=== PATIENT | female | born 1955 | race Caucasian/White ===

== ENCOUNTER 2023-08-02 02:09 | Observation (INO) | payer OTHER ==
[2023-08-02] MEDS ORDERED: ONDANSETRON 4 MG/2 ML VIAL ONE ×3 (03:03→06:28)
[2023-08-02] MEDS ORDERED: DICYCLOMINE HCL 20 MG/2 ML AMP IM ONE (03:03)
[2023-08-02 03:04] LABS: Absolute Lymphocytes (CBC) 1.5 K/uL (0.7-4.9); Absolute Monocytes 0.5 K/uL (0.1-1.3); Absolute Neutrophil 7.8 K/uL (1.8-8.0); Basophils % 0.4 % (0-1.3); Eosinophils % 0.4 % (0-4.4); Hematocrit 36.3 % (36.0-45.0); Hemoglobin 11.9 g/dL (12.0-15.0); Lymphocytes % 15.3 % (15.3-44.8); MCH 29.8 pg (27.0-35.0); MCHC 32.8 g/dL (32.0-36.0); MCV 90.7 fL (80-100); MPV 7.1 fL (7.6-11.3); Monocytes % 4.7 % (3.3-12.3); Neutrophils % 79.2 % (41.7-73.7); Platelets 302 thou/uL (152-406); Red Cell Distribution Width 14.3 % (12.1-15.2)
[2023-08-02] MEDS ORDERED: NA CHLORIDE 0.9% 1,000 ML ONE (03:04)
[2023-08-02] MEDS ORDERED: MORPHINE 4 MG/ML SYR ONE ×3 (03:04→06:29)
[2023-08-02 03:16] LABS: Albumin 3.7 g/dL (3.4-5.0); Albumin/Globulin Ratio 1.1 (1.1-1.8); Anion Gap 11.2 mEq/L (5.0-15.0); Bilirubin Total 0.7 mg/dL (0.2-1.0); Globulin 3.5 g/dL (2.3-3.5); Potassium 3.2 mEq/L (3.5-5.1); Protein, Total 7.2 g/dL (6.4-8.2)
--- NOTE | 2023-08-02 06:31 | EDPHYS ---
Physician Documentation [facility] Name: Meghana Martinez Age: 68 yrs Sex: Female : 1955 Arrival Date: 08/02/2023 Time: 02:09 Bed 16 Private MD: ED Physician Donis Lamas HPI: 08/01 03:21 This 68 yrs old Female presents to ER via EMS with complaints of abdominal pain. rt 03:21 Patient presents to the ED with nausea, vomiting, diarrhea, generalized abdominal pain rt starting several hours ago. Patient states that this occurred after eating seafood as well as coleslaw. Patient denies other acute complaints at this time. Denies hematemesis, hematochezia. Symptoms are moderate in severity, no other aggravating relieving factors.. Historical: - Allergies: 02:20 NSAIDS; jw7 - PMHx: 02:20 Gout; Hypertensive disorder; Arthritis; jw7 - PSHx: 02:20 Cataract (Mitch Eyes); jw7 - Immunization history:: Adult Immunizations up to date, Client reports receiving the 2nd dose of the Covid vaccine, Pneumococcal vaccine is up to date, Flu vaccine is up to date. - Infectious Disease History:: Denies. - Social history:: Smoking status: Patient denies any tobacco usage or history of. Patient uses alcohol, only on a social basis. street drugs, marijuana. - Family history:: not pertinent. ROS: 03:21 Constitutional: Negative for fever, chills, and weight loss, Cardiovascular: Negative rt for chest pain, palpitations, and edema, Respiratory: Negative for shortness of breath, cough, wheezing, and pleuritic chest pain, MS/Extremity: Negative for injury and deformity, Skin: Negative for injury, rash, and discoloration, Neuro: Negative for headache, weakness, numbness, tingling, and seizure, Psych: Negative for depression, anxiety, suicide ideation, homicidal ideation, and hallucinations, 03:21 Abdomen/GI: Positive for abdominal pain, nausea, vomiting, and diarrhea, Exam: 03:21 Constitutional: This is a well developed, well nourished patient who is awake, alert, rt and in no acute distress. Head/Face: Normocephalic, atraumatic. Chest/axilla: Normal chest wall appearance and motion. Nontender with no deformity. No lesions are appreciated. Cardiovascular: Regular rate and rhythm with a normal S1 and S2. No gallops, murmurs, or rubs. Normal PMI, no JVD. No pulse deficits. Respiratory: Lungs have equal breath sounds bilaterally, clear to auscultation and percussion. No rales, rhonchi or wheezes noted. No increased work of breathing, no retractions or nasal flaring. Skin: Warm, dry with normal turgor. Normal color with no rashes, no lesions, and no evidence of cellulitis. MS/ Extremity: Pulses equal, no cyanosis. Neurovascular intact. Full, normal range of motion. Neuro: Awake and alert, GCS 15, oriented to person, place, time, and situation. Cranial nerves II-XII grossly intact. Motor strength 5/5 in all extremities. Sensory grossly intact. Cerebellar exam normal. Normal gait. 03:21 Abdomen/GI: Mild tenderness diffusely without rebound, guarding, distention, Vital Signs: 02:20 BP 172 / 79; Pulse 58; Resp 29 S; Temp 98.8(O); Pulse Ox 98% on R/A; Weight 96.62 kg; jw7 Height 5 ft. 0 in. ; Pain 8/10; 02:21 BP 172 / 79; Pulse 57; Resp 29; Temp 96.3; Pulse Ox 100% ; Weight 97.98 kg; Height 5 ty ft. 0 in. ; Pain 0/10; 03:30 BP 140 / 78; Pulse 54; Resp 23 S; Pulse Ox 97% on R/A; jw7 04:30 BP 139 / 70; Pulse 67; Resp 21 S; Pulse Ox 96% on R/A; jw7 05:30 BP 115 / 96; Pulse 75; Resp 24 S; Pulse Ox 98% on R/A; jw7 06:30 BP 113 / 82; Pulse 68; Resp 23 S; Pulse Ox 97% on R/A; jw7 07:17 BP 151 / 71; Pulse 51; Resp 15 S; Pulse Ox 97% on R/A; kc6 08:10 BP 132 / 58; Pulse 60; Resp 18 S; Pulse Ox 98% on 2 lpm NC; kc6 02:21 Body Mass Index 42.18 (97.98 kg, 152.4 cm) ty 02:20 Pain Scale: Adult jw7 02:21 Pain Scale: Adult ty MDM: 02:43 Patient medically screened. rt 06:31 Differential Diagnosis Gastroenteritis, nausea, vomiting, diarrhea. Data reviewed: rt vital signs, nurses notes, lab test result(s), EKG. Consideration of Admission/Observation Patient was admitted/placed on observation. Management of patient was discussed with the following: Hospitalist: Agrees to admit. Independent interpretation of the following test(s) in the Emergency Department CT Scan: My interpretation is no bowel obstruction seen on my interpretation of ct images. Care significantly affected by the following chronic conditions: Hypertension. Counseling: I had a detailed discussion with the patient and/or guardian regarding the historical points, exam findings, and any diagnostic results supporting the discharge/admit diagnosis, lab results, radiology results, the need for further work-up and treatment in the hospital. Response to treatment: the patient's symptoms have mildly improved after treatment. 08/01 02:37 Order name: CBC with Diff; Complete Time: 03:16 jw7 08/01 02:37 Order name: CMP; Complete Time: 03:16 jw7 08/01 02:37 Order name: Lipase; Complete Time: 03:16 jw7 08/01 02:57 Order name: CT Abd/Pelvis - IV Contrast Only rt 08/01 05:21 Order name: US Abdomen Limited rt 08/01 02:37 Order name: IV Saline Lock; Complete Time: 02:37 jw7 08/01 02:37 Order name: Labs collected and sent; Complete Time: 02:40 jw7 Administered Medications: 03:17 Drug: NS 0.9% IV 1000 ml IV at 1 bolus Per protocol; 1000 mL bolus Route: IV; Rate: 1 jw7 bolus; Site: left antecubital; 05:17 Follow up: Response: No adverse reaction; IV Status: Completed infusion; IV Intake: jw7 1000ml 03:17 Drug: Dicyclomine IM 20 mg IM once Route: IM; Site: left ventrogluteal; jw7 05:17 Follow up: Response: No adverse reaction; Marked relief of symptoms jw7 03:17 Drug: Ondansetron IVP 4 mg IVP once; over 2 minutes Route: IVP; Site: left antecubital; jw7 05:17 Follow up: Response: No adverse reaction; Marked relief of symptoms jw7 03:17 Drug: morphine IVP or IV 4 mg IVP once over 4 mins Route: IVP; Infused Over: 4 mins; jw7 Site: left antecubital; 05:17 Follow up: Response: No adverse reaction; Marked relief of symptoms; Pain is decreased jw7 06:43 Drug: morphine IVP or IV 4 mg IVP once over 4 mins Route: IVP; Infused Over: 4 mins; jw7 Site: left antecubital; 07:17 Follow up: Response: No adverse reaction; Pain is decreased; RASS: Alert and Calm (0) kc6 06:43 Drug: Ondansetron IVP 4 mg IVP once; over 2 minutes Route: IVP; Site: left antecubital; jw7 07:17 Follow up: Response: No adverse reaction; Nausea is decreased kc6 Disposition Summary: 08/02/23 06:31 Hospitalization Ordered Notes: Hospitalization Status: Observation rt Provider: Donovan King rt Location: Telemetry/MedSurg (observation) rt Condition: Stable rt Problem: new rt Symptoms: are unchanged rt Bed/Room Type: Standard rt Room Assignment: 402(08/02/23 07:26) bd Diagnosis - Intractable nausea and vomiting rt Forms: - Medication Reconciliation Form rt - SBAR form rt - Leadership Thank You Letter rt Signatures: Dispatcher [employer] Solange Blount Jodi, RN RN jw7 Donis Lamas MD MD rt Radha Perdomo RN kc6 Corrections: (The following items were deleted from the chart) 07:26 06:31 rt bd
--- NOTE | 2023-08-02 06:31 | ER ---
Nurse's Notes [facility] Name: Meghana Martinez Age: 68 yrs Sex: Female : 1955 Arrival Date: 08/02/2023 Time: 02:09 Bed 16 Private MD: Diagnosis: Intractable nausea and vomiting Presentation: 08/01 02:20 Chief complaint: Patient states: Nausea, vomiting and diarrhea that started about 2 jw7 hours ago after eating seafood. 02:20 Coronavirus screen: At this time, the client does not indicate any symptoms associated jw7 with coronavirus-19. Ebola Screen: No symptoms or risks identified at this time. Initial Sepsis Screen: Does the patient meet any 2 criteria? No. Patient's initial sepsis screen is negative. Does the patient have a suspected source of infection? No. Patient's initial sepsis screen is negative. Risk Assessment: Do you want to hurt yourself or someone else? Patient reports no desire to harm self or others. Onset of symptoms was August 02, 2023. 02:20 Method Of Arrival: EMS: [facility] jw7 02:20 Acuity: IVONNE 3 jw7 Triage Assessment: 02:20 General: Appears in no apparent distress. uncomfortable, Behavior is calm, cooperative, jw7 appropriate for age. Pain: Complains of pain in abdomen Pain does not radiate. Pain currently is 8 out of 10 on a pain scale. Quality of pain is described as crampy, Pain began suddenly, Is continuous. EENT: No deficits noted. No signs and/or symptoms were reported regarding the EENT system. Neuro: Level of Consciousness is awake, alert, obeys commands, Oriented to person, place, time, situation, Appropriate for age. Cardiovascular: Capillary refill < 3 seconds Patient's skin is warm and dry. Respiratory: Airway is patent Trachea midline Respiratory effort is even, unlabored, Respiratory pattern is regular, symmetrical. GI: Abdomen is round non-distended, obese, Bowel sounds present X 4 quads. Abd is soft Abdomen is tender to palpation Reports lower abdominal pain, upper abdominal pain, diarrhea, nausea, vomiting. : No deficits noted. No signs and/or symptoms were reported regarding the genitourinary system. Derm: Skin is intact, is healthy with good turgor, Skin is dry, Skin is normal, Skin temperature is warm. Musculoskeletal: Circulation, motion, and sensation intact. Range of motion: intact in all extremities. Historical: - Allergies: 02:20 NSAIDS; jw7 - PMHx: 02:20 Gout; Hypertensive disorder; Arthritis; jw7 - PSHx: 02:20 Cataract (Mitch Eyes); jw7 - Immunization history:: Adult Immunizations up to date, Client reports receiving the 2nd dose of the Covid vaccine, Pneumococcal vaccine is up to date, Flu vaccine is up to date. - Infectious Disease History:: Denies. - Social history:: Smoking status: Patient denies any tobacco usage or history of. Patient uses alcohol, only on a social basis. street drugs, marijuana. - Family history:: not pertinent. Screenin:20 [facility] ED Fall Risk Assessment (Adult) History of falling in the last 3 months, jw7 including since admission No falls in past 3 months (0 pts) Confusion or Disorientation No (0 pts) Intoxicated or Sedated No (0 pts) Impaired Gait No (0 pts) Mobility Assist Device Used No (0 pt) Altered Elimination No (0 pt) Score/Fall Risk Level 0 - 2 = Low Risk Oriented to surroundings, Maintained a safe environment, Educated pt \\T\\ family on fall prevention, incl call for assistance when getting out of bed. Abuse screen: Denies threats or abuse. Denies injuries from another. Nutritional screening: No deficits noted. Tuberculosis screening: No symptoms or risk factors identified. Assessment: 02:20 General: See Triage Assessment. jw7 03:30 Reassessment: Patient appears in no apparent distress at this time. Patient and/or 7 family updated on plan of care and expected duration. Pain level reassessed. Patient is alert, oriented x 3, equal unlabored respirations, skin warm/dry/pink. Patient states feeling better. Patient states symptoms have improved. 04:30 Reassessment: Patient appears in no apparent distress at this time. No changes from jw7 previously documented assessment. Patient and/or family updated on plan of care and expected duration. Pain level reassessed. Patient is alert, oriented x 3, equal unlabored respirations, skin warm/dry/pink. 05:30 Reassessment: Patient appears in no apparent distress at this time. Patient and/or [facility] family updated on plan of care and expected duration. Pain level reassessed. Patient is alert, oriented x 3, equal unlabored respirations, skin warm/dry/pink. C/O RETURNING ABDOMINAL PAIN. 06:30 Reassessment: Patient appears in no apparent distress at this time. No changes from jw7 previously documented assessment. Patient and/or family updated on plan of care and expected duration. Pain level reassessed. Patient is alert, oriented x 3, equal unlabored respirations, skin warm/dry/pink. 07:17 General: Appears in no apparent distress. comfortable, well groomed, well developed, kc6 Behavior is calm, cooperative, appropriate for age. Neuro: Level of Consciousness is awake, alert, obeys commands, Oriented to person, place, time, situation, Appropriate for age. Cardiovascular: Capillary refill < 3 seconds. Respiratory: Airway is patent Trachea midline Respiratory effort is even, unlabored, Respiratory pattern is regular, symmetrical. GI: Abdomen is round non-distended, Reports diarrhea, nausea, vomiting. : No signs and/or symptoms were reported regarding the genitourinary system. EENT: No signs and/or symptoms were reported regarding the EENT system. Derm: No signs and/or symptoms reported regarding the dermatologic system. Skin is intact, is healthy with good turgor, Skin is pink, warm \\T\\ dry. Musculoskeletal: No signs and/or symptoms reported regarding the musculoskeletal system. Circulation, motion, and sensation intact. Capillary refill < 3 seconds, Range of motion: intact in all extremities. 08:11 Reassessment: MELISSA MTZ STATES WE MUST GIVE SOMETHING TO "STABILIZE" THE PATIENTS BP OF kc6 151/71 PRIOR TO BEING BROUGHT TO THE FLOOR. SCADA TECHNICIAN NOTIFIED. STATES TO TAKE THE PATIENT UP STAIRS. PTS BP REEVALUATED AND IS NOW 132/58. Vital Signs: 02:20 BP 172 / 79; Pulse 58; Resp 29 S; Temp 98.8(O); Pulse Ox 98% on R/A; Weight 96.62 kg; jw7 Height 5 ft. 0 in. ; Pain 8/10; 02:21 BP 172 / 79; Pulse 57; Resp 29; Temp 96.3; Pulse Ox 100% ; Weight 97.98 kg; Height 5 ty ft. 0 in. ; Pain 0/10; 03:30 BP 140 / 78; Pulse 54; Resp 23 S; Pulse Ox 97% on R/A; jw7 04:30 BP 139 / 70; Pulse 67; Resp 21 S; Pulse Ox 96% on R/A; jw7 05:30 BP 115 / 96; Pulse 75; Resp 24 S; Pulse Ox 98% on R/A; jw7 06:30 BP 113 / 82; Pulse 68; Resp 23 S; Pulse Ox 97% on R/A; jw7 07:17 BP 151 / 71; Pulse 51; Resp 15 S; Pulse Ox 97% on R/A; kc6 08:10 BP 132 / 58; Pulse 60; Resp 18 S; Pulse Ox 98% on 2 lpm NC; kc6 02:21 Body Mass Index 42.18 (97.98 kg, 152.4 cm) ty 02:20 Pain Scale: Adult jw7 02:21 Pain Scale: Adult ty ED Course: 02:17 Patient arrived in ED. jr12 02:17 Donis Lamas MD is Attending Physician. rt 02:20 Arm band placed on. jw7 02:20 Patient has correct armband on for positive identification. Bed in low position. Call jw7 light in reach. Provided Education on: Use of Call LIght. 02:23 Anahi Haney, RN is Primary Nurse. jw7 02:26 Triage completed. jw7 02:34 Inserted saline lock: 22 gauge in left antecubital area, using aseptic technique. Blood ty collected. 02:42 CBC with Diff Sent. ty 02:43 CMP Sent. ty 02:43 Lipase Sent. ty 03:55 CT Abd/Pelvis - IV Contrast Only In Process Unspecified. EDMS 05:15 No provider procedures requiring assistance completed. jw7 05:41 US Abdomen Limited In Process Unspecified. EDMS 06:30 Gordo King MD is Hospitalizing Provider. rt 06:30 Donovan King MD is Hospitalizing Provider. rt 07:00 Report received from Anahi Haney RN. Client placed on continuous cardiac and pulse kc6 oximetry monitoring. NIBP monitoring applied. Warm blanket given. Pillow given. 08:28 Patient admitted, IV remains in place. kc6 Administered Medications: 03:17 Drug: NS 0.9% IV 1000 ml IV at 1 bolus Per protocol; 1000 mL bolus Route: IV; Rate: 1 jw7 bolus; Site: left antecubital; 05:17 Follow up: Response: No adverse reaction; IV Status: Completed infusion; IV Intake: jw7 1000ml 03:17 Drug: Dicyclomine IM 20 mg IM once Route: IM; Site: left ventrogluteal; jw7 05:17 Follow up: Response: No adverse reaction; Marked relief of symptoms jw7 03:17 Drug: Ondansetron IVP 4 mg IVP once; over 2 minutes Route: IVP; Site: left antecubital; jw7 05:17 Follow up: Response: No adverse reaction; Marked relief of symptoms jw7 03:17 Drug: morphine IVP or IV 4 mg IVP once over 4 mins Route: IVP; Infused Over: 4 mins; jw7 Site: left antecubital; 05:17 Follow up: Response: No adverse reaction; Marked relief of symptoms; Pain is decreased jw7 06:43 Drug: morphine IVP or IV 4 mg IVP once over 4 mins Route: IVP; Infused Over: 4 mins; jw7 Site: left antecubital; 07:17 Follow up: Response: No adverse reaction; Pain is decreased; RASS: Alert and Calm (0) kc6 06:43 Drug: Ondansetron IVP 4 mg IVP once; over 2 minutes Route: IVP; Site: left antecubital; jw7 07:17 Follow up: Response: No adverse reaction; Nausea is decreased kc6 Medication: 05:15 VIS not applicable for this client. jw7 Intake: 05:17 IV: 1000ml; Total: 1000ml. jw7 Outcome: 06:31 Decision to Hospitalize by Provider. rt 08:28 Admitted to Med/surg accompanied by nurse, via wheelchair, room 402, with chart, Report russlel called to cesar paul 08:28 Condition: good 08:28 Instructed on the need for admit, 08:28 Patient left the ED. kc6 Signatures: Dispatcher [facility] EDMS Anahi Haney RN RN jw7 Radha Perdomo RN RN [id number] Donis Lamas MD MD rt Isabella Perry Tylor ty Corrections: (The following items were deleted from the chart) 02:32 02:20 BP 172 / 79; Pulse 58bpm; Resp 29bpm; Spontaneous; Pulse Ox 98% RA; Temp 98.8F jw7 Oral; 96.62 kg; Height 5 ft. 0 in.; BMI: 41.6; Pain 0/10, Adult; jw7 02:34 02:20 BP 172 / 79; Pulse 58bpm; Resp 29bpm; Spontaneous; Pulse Ox 98% RA; Temp 98.8F jw7 Oral; 96.62 kg; Height 5 ft. 0 in.; BMI: 41.6; Pain 6, Adult; jw7 02:34 02:20 Pain: Complains of pain in abdomen Pain does not radiate. Pain currently is 6 out jw7 of 10 on a pain scale. Quality of pain is described as crampy, Pain began suddenly, Is continuous, jw7
--- NOTE | 2023-08-02 06:58 | P.HP ---
Certification for Inpatient Patient admitted to: Observation With expected LOS: <2 Midnights Patient will require the following post-hospital care: None Practitioner: I am a practitioner with admitting privileges, knowledge of patient current condition, hospital course, and medical plan of care. Services: Services provided to patient in accordance with Admission requirements found in Title 42 Section 412.3 of the Code of Federal Regulations Patient History Date of Service: 08/02/23 Reason for admission: Intractable N/V/D History of Present Illness: 68-year-old female with history of hypertension, gout, arthritis presents emergency department with nausea/vomiting/diarrhea. She is here visiting from [place] and developed nausea/vomiting/diarrhea last night. She does associate this with consuming fried fish, coleslaw, tartar sauce approximately 3 hours prior to the onset of her symptoms, others did not get sick but had not eaten the coleslaw. She was evaluated in the emergency department her labs were significant for potassium of 3.[address] abdomen pelvis IV contrast was performed which showed mild gallbladder distention, abdominal ultrasound performed which showed normal CBD, negative sonographic Lima sign, small amount of sludge in gallbladder neck. LFTs, T. bili within normal limits, patient with persistent nausea/vomiting/diarrhea this morning still ongoing. ED prior wishes to admit patient under observation for intractable nausea/vomiting/diarrhea. - Past Medical/Surgical History -: Gout -: Hypertension -: Arthritis -: Tubal ligation Psychosocial/ Personal History: Works in [employer] - Family History Family History: Reviewed- Non-Contributory - Social History Smoking Status: Former smoker Alcohol use: Yes CD- Drugs: Yes Place of Residence: Home Review of Systems 10-point ROS is otherwise unremarkable Gastrointestinal: Nausea, Vomiting, Abdominal Pain, Diarrhea Physical Examination - Physical Exam General: Alert, In no apparent distress, Oriented x3 HEENT: Atraumatic, PERRLA, EOMI Neck: Supple, 2+ carotid pulse no bruit, No LAD Respiratory: Clear to auscultation bilaterally, Normal air movement Cardiovascular: Regular rate/rhythm, Normal S1 S2 Gastrointestinal: Normal bowel sounds, Tenderness (Mild lower abdominal tenderness) Musculoskeletal: No tenderness Integumentary: No rashes Neurological: Normal speech, Normal strength at 5/5 x4 extr, Normal tone, Normal affect - Studies Laboratory Data (last 24 hrs) 08/02/23 08/02/23 02:37 02:37 WBC 9.90 Hgb 11.9 L Hct 36.3 Plt Count 302 Sodium 137 Potassium 3.2 L BUN 16 Creatinine 0.80 Glucose 127 H Total Bilirubin 0.7 AST 19 ALT 28 Alkaline Phosphatase 90 Lipase 21 Assessment and Plan - Plan Assessment: Intractable nausea/vomiting/diarrhea Hypokalemia Gout Hypertension Arthritis Plan: Intractable nausea/vomiting/diarrhea Hypokalemia N.p.o., sips of water/ice chips okay Advance diet as tolerated Supportive care with IV fluids, antiemetics, as needed pain medications No RUQ tenderness Suspect gastroenteritis/possible foodborne illness Gout Hypertension Arthritis Hold oral home medications at this time, restart when appropriate DVT PPX: Lovenox Code status: Full Discharge Plan: Home Plan to discharge in: 24 Hours - Advance Directives Does patient have a Living Will: No Does patient have a Durable POA for Healthcare: No - Code Status/Comfort Care Code Status Assessed: Yes (Full code) Critical Care: No Time Spent Managing Pts Care (In Minutes): 70
[2023-08-02] MEDS ORDERED: PROMETHAZINE INJ 25 MG/ML AMP IV PRN (08:30)
[2023-08-02] MEDS: ENOXAPARIN 40 MG/0.4 ML SQ SCH (10:52)
[2023-08-02] MEDS: NA CHLORIDE 0.9% 1,000 ML IV SCH (10:52)
--- NOTE | 2023-08-02 11:57 | RAD REPORT ---
EXAM DESCRIPTION: US ABDOMEN LIMITED COMPARISON: Female, 68 years old, ruq COMPARISON: Same day CT abdomen/pelvis TECHNIQUE: Multiple sonographic images of the gallbladder. FINDINGS: Liver: Image parenchyma appears unremarkable. Hepatopetal portal venous flow. Biliary system: Distended gallbladder without visualized stone. Small amount of sludge suspected at t he neck (images 11-12/40). Gallbladder wall thickness measures 2 mm. Common duct diameter measures 6 mm. Spinning And Winding Supervisor reports negative sonographic Lima's sign. Other: No visualized ascites. IMPRESSION: Distended gallbladder with small amount of sludge suspected at the neck. No evidence of stone or acute cholecystitis. Electronically signed by: Benito Bennett MD 08/02/2023 06:27 AM CDT RP Due to temporary technical issues with the PACS/Fluency reporting system, reports are being signed by the in house radiologist without review as a courtesy to ensure prompt reporting. The interpreting r adiologist is fully responsible for the content of the report.
--- NOTE | 2023-08-02 12:00 | RAD REPORT ---
EXAM DESCRIPTION: CT ABDOMEN PELVIS WITH IV CONTRAST CLINICAL HISTORY: Female, 68 years old, ABD PAIN COMPARISON: None. TECHNIQUE: CT acquisition of the abdomen and pelvis following the administration of IV contrast. Cor onal and sagittal reformatted images provided. This exam was performed according to departmental dose -optimization program which includes automated exposure control, adjustment of the mA and/or kV accor ding to patient size, and/or use of iterative reconstruction technique. FINDINGS: SUPPORTIVE DEVICES: None. LOWER CHEST: Mild basilar scarring/atelectasis. Unremarkable imaged heart. ABDOMEN AND PELVIS: Liver: Upper normal size. Gallbladder and bile ducts: Distended gallbladder. Common bile duct diameter measures 7 mm. No eviden ce of stone, wall thickening or pericholecystic fluid. Pancreas: Normal. Spleen: Upper normal size. Adrenal glands: Normal. Kidneys and ureters: No acute finding. Multiple small cystic-appearing renal cortical lesions bilater ally without suspicious features. Bladder: Nondistended without evident abnormality. Reproductive organs: Unremarkable. GI tract: Small hiatal hernia. Otherwise the distal esophagus, stomach, duodenum and small bowel are unremarkable. No evidence of appendicitis. The large bowel is normal in caliber without wall thickeni ng. Colonic diverticulosis without diverticulitis. Lymph nodes: No evident adenopathy. Peritoneum: No evidence of ascites, fluid collection, or free air. Abdominal wall: No significant hernia. Vessels: Atherosclerosis without evidence of aneurysm. MUSCULOSKELETAL: No acute osseous abnormality. Degenerative change of the spine and pelvis. IMPRESSION: 1. Gallbladder distention and upper normal common bile duct diameter. Correlate with h epatic enzymes and right upper quadrant ultrasound if there is sufficient clinical concern for obstru ction. 2. Otherwise no acute abdominopelvic finding. 3. Uncomplicated colonic diverticulosis. Additional chronic and incidental findings above. Electronically signed by: Benito Bennett MD 08/02/2023 05:04 AM CDT RP Due to temporary technical issues with the PACS/Fluency reporting system, reports are being signed by the in house radiologist without review as a courtesy to ensure prompt reporting. The interpreting r adiologist is fully responsible for the content of the report.
[2023-08-02] MEDS: ONDANSETRON 4 MG/2 ML VIAL IV PRN (12:12)
[2023-08-02 14:11] VITALS: BMI 42.2
[2023-08-03 00:56] VITALS: O2SAT 95
[2023-08-03 07:22] LABS: Albumin 2.8 g/dL (3.4-5.0); Anion Gap 10.1 mEq/L (5.0-15.0); Bilirubin Total 0.6 mg/dL (0.2-1.0); Globulin 2.7 g/dL (2.3-3.5); Magnesium 1.9 mg/dL (1.6-2.4); Potassium 3.1 mEq/L (3.5-5.1); Protein, Total 5.5 g/dL (6.4-8.2); Thyroid Stimulating Hormone 1.07 uIU/mL (0.358-3.740)
[2023-08-03] MEDS ORDERED: ATORVASTATIN 10 MG TAB PO SCH (09:00)
[2023-08-03] MEDS ORDERED: ESCITALOPRAM 20 MG TAB PO SCH (09:00)
[2023-08-03] MEDS: METOPROLOL XL 25 MG TAB PO SCH (09:00)
[2023-08-03] MEDS: MELOXICAM 15 MG PO SCH (09:00)
[2023-08-03] MEDS ORDERED: allopurinoL 100 MG TAB PO SCH (09:00)
[2023-08-03 09:04] LABS: Absolute Lymphocytes (CBC) 1.8 K/uL (0.7-4.9); Absolute Monocytes 0.4 K/uL (0.1-1.3); Absolute Neutrophil 5.1 K/uL (1.8-8.0); Basophils % 0.4 % (0-1.3); Eosinophils % 0.6 % (0-4.4); Hematocrit 33.6 % (36.0-45.0); Hemoglobin 11.1 g/dL (12.0-15.0); Lymphocytes % 23.9 % (15.3-44.8); MCH 30.7 pg (27.0-35.0); MCHC 33.2 g/dL (32.0-36.0); MCV 92.4 fL (80-100); MPV 6.8 fL (7.6-11.3); Neutrophils % 70.1 % (41.7-73.7); Nucleated Red Blood Cells % 0.2 % (0-0); Platelets 260 thou/uL (152-406); RBC Red Blood Cell Count 3.63 M/uL (3.86-4.86); Red Cell Distribution Width 14.8 % (12.1-15.2)
[2023-08-03 09:37] VITALS: BP 147/68
[2023-08-03 10:25] VITALS: TEMP 97.7
--- NOTE | 2023-08-03 10:51 | P.DS ---
Admission Date: 08/02/23 Discharge Date: 08/03/23 Disposition: ROUTINE DISCHARGE Discharge Condition: GOOD Reason for Admission: Intractable N/V/D Brief History of Present Illness: 68-year-old female with history of hypertension, gout, arthritis presents emergency department with nausea/vomiting/diarrhea. She is here visiting from [place] and developed nausea/vomiting/diarrhea last night. She does associate this with consuming fried fish, coleslaw, tartar sauce approximately 3 hours prior to the onset of her symptoms, others did not get sick but had not eaten the coleslaw. She was evaluated in the emergency department her labs were significant for potassium of 3.[address] abdomen pelvis IV contrast was performed which showed mild gallbladder distention, abdominal ultrasound performed which showed normal CBD, negative sonographic Lima sign, small amount of sludge in gallbladder neck. LFTs, T. bili within normal limits, patient with persistent nausea/vomiting/diarrhea this morning still ongoing. ED prior wishes to admit patient under observation for intractable nausea/vomiting/diarrhea. Hospital Course: Assessment: Intractable nausea/vomiting/diarrhea Hypokalemia Gout Hypertension Arthritis Patient was admitted to the hospital under observation for intractable nausea/vomiting/diarrhea. She is treated symptomatically with IV fluids, a ntiemetics as needed and had significant proved in her symptoms. CT abdomen pelvis IV contrast was performed which was negative for acute findings, abdominal ultrasound was also performed which showed a distended gallbladder with small amount of sludge, no evidence of stone or cholecystitis. This morning patient is tolerating full liquid diet, symptomatically much improved and stable for discharge. Please continue your home medications as prescribed and follow-up with your primary care doctor in 1 to 2 weeks There will be a prescription for Zofran attached to discharge paperwork which you can take to the pharmacy of your choice you should take this as needed for nausea. Vital Signs/Physical Exam: Temp Pulse Resp BP Pulse Ox 97.7 F 54 20 147/68 H 94 08/03/23 08:00 08/03/23 09:00 08/03/23 08:00 08/03/23 09:00 08/03/23 08:00 General: Alert, In no apparent distress, Oriented x3 HEENT: Atraumatic, PERRLA Neck: Supple, JVD not distended Respiratory: Clear to auscultation bilaterally, Normal air movement Cardiovascular: Regular rate/rhythm, Normal S1 S2 Gastrointestinal: Normal bowel sounds, No tenderness Musculoskeletal: No tenderness Integumentary: No rashes Neurological: Normal speech, Normal tone Laboratory Data at Discharge: WBC 7.30 thou/uL (4.3-10.9) 08/03/23 08:37 Hgb 11.1 g/dL (12.0-15.0) L 08/03/23 08:37 Hct 33.6 % (36.0-45.0) L 08/03/23 08:37 Plt Count 260 thou/uL (152-406) 08/03/23 08:37 Sodium 142 mEq/L (136-145) D 08/03/23 06:32 Potassium 3.1 mEq/L (3.5-5.1) L 08/03/23 06:32 BUN 10 mg/dL (7-18) 08/03/23 06:32 Creatinine 0.70 mg/dL (0.55-1.02) 08/03/23 06:32 Glucose 91 mg/dL (74-106) 08/03/23 06:32 Magnesium 1.9 mg/dL (1.6-2.4) 08/03/23 06:32 Total Bilirubin 0.6 mg/dL (0.2-1.0) 08/03/23 06:32 AST 19 U/L (15-37) 08/03/23 06:32 ALT 23 U/L (13-56) 08/03/23 06:32 Alkaline Phosphatase 74 U/L (45-117) 08/03/23 06:32 Lipase 21 U/L (13-75) 08/02/23 02:37 Home Medications: Allopurinol 100 mg PO DAILY 08/02/23 Ascorbic Acid/Ascorbate Sodium [Vitamin C 500 mg Tablet Chew] 500 mg PO DAILY 08/02/23 Atorvastatin Calcium 10 tab PO DAILY 08/02/23 Calcium Carbonate/Vitamin D3 [Calcium 600 mg-D3 20 Mcg Tab] 600 mg PO DAILY 08/02/23 Escitalopram [Lexapro*] 20 tab PO DAILY 08/02/23 Furosemide 20 mg PO DAILY 08/02/23 Glucosamine/Chondro Tapia A [Glucosamine-Chondroitin Tab] 2,500 mg PO DAILY 08/02/23 Meloxicam [Mobic] 15 mg PO DAILY 08/02/23 Metoprolol Succinate 25 mg PO DAILY 08/02/23 Potassium Chloride 10 meq PO DAILY 08/02/23 Vitamin B Complex [Vitamin B Complex*] 1 cap PO DAILY 08/02/23 Ondansetron [Zofran] 4 mg PO Q6H PRN #8 tab 08/03/23 New Medications: Ondansetron [Zofran] 4 mg PO Q6H PRN #8 tab PRN Reason: Nausea / Vomiting Physician Discharge Instructions: Patient was admitted to the hospital under observation for intractable nausea/vomiting/diarrhea. She is treated symptomatically with IV fluids, antiem etics as needed and had significant proved in her symptoms. CT abdomen pelvis IV contrast was performed which was negative for acute findings, abdominal ultrasound was also performed which showed a distended gallbladder with small amount of sludge, no evidence of stone or cholecystitis. This morning patient is tolerating full liquid diet, symptomatically much improved and stable for discharge. Please continue your home medications as prescribed and follow-up with your primary care doctor in 1 to 2 weeks There will be a prescription for Zofran attached to discharge paperwork which you can take to the pharmacy of your choice you should take this as needed for nausea. Diet: [place] Activity: Ad jaqueline Followup: LORENA CARRILLO [Primary Care Provider] - 1-2 Weeks Time spent managing pt's care (in minutes): 35
== END 2023-08-03 11:02 | disposition home or self-care (01) ==
LOC: ER 02:09 → ERHOLD 06:50 → 4TH 07:36
PROVIDERS: ADMIT Internal Medicine Sleep Medicine; ATTEND Hospitalist
DX: R11.2 Nausea with vomiting, unspecified (principal); I10 Essential (primary) hypertension; M10.9 Gout, unspecified; R19.7 Diarrhea, unspecified; E87.6 Hypokalemia; M19.90 Unspecified osteoarthritis, unspecified site
CPT/HCPCS: 96361; 85025 ×2; 36415 ×2; 83735; 84443; 84439; 83690; 80053 ×2; 74177; 76705; 96375; 96372; 96374; 99285; Q9967; J0500; J1650 ×2; J2405 ×3; J7030 ×4; G0378